=== PATIENT | female | born 1980 | race Caucasian/White ===

== ENCOUNTER 2017-01-29 14:13 | Emergency (ER) | payer OTHER ==
[2017-01-29 14:40] VITALS: BP 134/84
--- NOTE | 2017-01-29 14:59 | UC ---
Throat Pain/Nasal Jevon HPI - HPI Summary HPI Summary: [address] AND RIGHT EAR PAIN. NO HEARING LOSS OR DISCHARGE. NO FEVER. VERY MILD COUGH. NOT CONGESTED. OTC ZEYNEP HELPING. RAN OUT OF SINGULAIR. - History of Current Complaint Chief Complaint: UCGeneralIllness Stated Complaint: SORE THROAT/EAR COMPLAINT Time Seen by Provider: 01/29/17 14:45 Hx Obtained From: Patient Hx Last Menstrual Period: 01/08/17 Onset/Duration: Gradual Onset, Lasting Days, Still Present Severity: Moderate Pain Intensity: 6 Pain Scale Used: 0-10 Numeric Cough: Nonproductive Associated Signs & Symptoms: Positive: Negative Related History: Seasonal Allergies - Allergies/Home Medications Allergies/Adverse Reactions: Allergies Allergy/AdvReac Type Severity Reaction Status Date / Time Gluten Meal Allergy See Comment Verified 01/29/17 14:40 Morphine Allergy Rash Verified 01/29/17 14:40 Home Medications: Home Medications Cetirizine* [ZyrTEC 10 MG TAB*] 1 tab PO DAILY 01/29/17 [History Confirmed 01/29] Cholecalciferol [Vitamin D] 1 tab PO DAILY 01/29/17 [History Confirmed 01/29/17] Ergocalciferol [Vitamin D2] 50,000 units PO WEEKLY 01/29/17 [History Confirmed 01/29/17] Fexofenadine HCl [Allergy 24-Hr] 1 tab PO DAILY PRN 01/29/17 [History Confirmed 01/29/17] Lactobacillus [Probiotic] 1 tab PO DAILY 01/29/17 [History Confirmed 01/29/17] Lisinopril [Zestril 10 MG-] 1 tab PO DAILY 01/29/17 [History Confirmed 01/29/17] Magnesium 2 tab PO DAILY 01/29/17 [History Confirmed 01/29/17] Multiple Vitamins W/ Minerals [Multivitamin Adults] 1 tab PO DAILY 01/29/17 [ History Confirmed 01/29/17] Triamcinolone NASAL SPRAY* [Nasacort Aq Nasal Cotter*] 1 spray NASAL DAILY [History Confirmed 01/29/17] Triamterene/HCTZ 37.5-25 MG* [Dyazide CAP*] 2 tab PO DAILY 01/29/17 [History Confirmed 01/29/17] PMH/Surg Hx/FS Hx/Imm Hx - Additional Past Medical History Additional PMH: SEASONAL ALLERGIES Cardiovascular History: Hypertension Respiratory History: Asthma GI/ History: Gastroesophageal Reflux Other GI/ History: IBS - Surgical History Surgical History: Yes Surgery Procedure, Year, and Place: RT HIP ARTHROSCOPY/T&A/LEFT HIP ARTHROSCOPY - Family History Known Family History: Positive: Hypertension, Diabetes - Social History Alcohol Use: Rare Substance Use Type: None Smoking Status (MU): Never Smoked Tobacco Household Exposure Type: Cigarettes Review of Systems Constitutional: Negative ENT: Sore Throat, Ear Ache Respiratory: Cough Cardiovascular: Negative Gastrointestinal: Negative All Other Systems Reviewed And Are Negative: Yes Physical Exam Triage Information Reviewed: Yes Appearance: Well-Appearing, No Pain Distress, Well-Nourished Vital Signs: Initial Vital Signs Temp 98.4 F 01/29/17 14:34 Pulse 103 01/29/17 14:34 Resp 18 01/29/17 14:34 BP 134/84 01/29/17 14:34 Pulse Ox 98 01/29/17 14:34 Vital Signs Reviewed: Yes Eyes: Positive: Conjunctiva Clear ENT: Positive: Hearing grossly normal, Pharynx normal, TMs normal Neck: Positive: Supple, Nontender, No Lymphadenopathy Respiratory Exam: Normal Cardiovascular Exam: Normal Abdomen Description: Positive: Soft Musculoskeletal: Positive: No Edema Neurological: Positive: Alert Psychological: Positive: Age Appropriate Behavior Skin: Negative: rashes Throat Pain/Nasal Course/Dx - Differential Dx/Diagnosis Provider Diagnoses: ACUTE PHARYNGITIS Discharge - Discharge Plan Condition: Stable Disposition: HOME Prescriptions: Montelukast Sodium TAB* [Singulair TAB*] 10 mg PO DAILY #30 tab Patient Education Materials: Pharyngitis (ED) Referrals: Lindsey Sanchez MD [Primary Care Provider] - If Needed Additional Instructions: YOUR SYMPTOMS MAY BE DUE TO ALLERGIES OR A VIRUS. NO SIGN OF BACTERIAL INFECTION SO ANTIBIOTICS NOT INDICATED AT PRESENT. SINGULAIR REFILLED TODAY. CONTINUE OTC ANTIHISTAMINE DAILY. SEEK FOLLOW-UP IF NOT IMPROVING EXPECTED.
== END 2017-01-29 15:10 | disposition home or self-care (01) ==
LOC: UCEAST 14:13
DX: J02.9 Acute pharyngitis, unspecified (principal); I10 Essential (primary) hypertension; J45.909 Unspecified asthma, uncomplicated; K21.9 Gastro-esophageal reflux disease without esophagitis; K58.9 Irritable bowel syndrome, unspecified
CPT/HCPCS: 99212; G0463

== ENCOUNTER 2017-02-19 21:25 | Emergency (ER) | payer OTHER ==
[2017-02-19 21:32] VITALS: BP 126/79
[2017-02-19] MEDS ORDERED: Cephalexin CAP* 500 MG PO ONE (22:00)
--- NOTE | 2017-02-19 22:08 | UC ---
Skin Complaint HPI - HPI Summary HPI Summary: BUG BITE ON RIGHT FOREARM FOUR DAYS AGO , HAD ITCHY BLISTER APPEAR, POPPED BLISTER REDNESS AROUND AREA SPREADING. NO TICK BITES NO FEVER. - History of Current Complaint Chief Complaint: UCSkin Time Seen by Provider: 02/19/17 21:44 Stated Complaint: BUG BITE Hx Obtained From: Patient Hx Last Menstrual Period: 01/31/17 Onset/Duration: Gradual Onset, Lasting Days, Still Present Skin Exposure Onset/Duration: Days Ago Onset Severity: Mild Current Severity: Mild Location: Discrete Character: Pruritus, Redness, Painful Aggravating: Touch Associated Signs & Symptoms: Positive: Rash, Drainage - RESOLVED, Tenderness, Red Streaks. Negative: Fever, Chills, Syncope, Bruising, Joint Swelling Related History: Insect Bite/Sting, Possible Reaction to: Insect - Allergy/Home Medications Allergies/Adverse Reactions: Allergies Allergy/AdvReac Type Severity Reaction Status Date / Time Gluten Meal Allergy See Comment Verified 02/19/17 21:32 Morphine Allergy Rash Verified 02/19/17 21:32 Home Medications: Home Medications Cranberry (Vaccinium Macrocarp [Cranberry] 1 tab PO DAILY 02/19/17 [History Confirmed 02/19/17] Terbinafine HCl 1 tab PO DAILY 02/19/17 [History Confirmed 02/19/17] Review of Systems Constitutional: Negative Skin: Rash Eyes: Negative ENT: Negative Respiratory: Negative Cardiovascular: Negative Gastrointestinal: Negative Genitourinary: Negative Motor: Negative Neurovascular: Negative Musculoskeletal: Negative Neurological: Negative Psychological: Negative All Other Systems Reviewed And Are Negative: Yes PMH/Surg Hx/FS Hx/Imm Hx Previously Healthy: Yes - Surgical History Surgical History: Yes Surgery Procedure, Year, and Place: RT HIP ARTHROSCOPY/T&A/LEFT HIP ARTHROSCOPY - Family History Known Family History: Positive: Hypertension, Diabetes - Social History Occupation: Employed Full-time Lives: With Family Alcohol Use: Rare Substance Use Type: None Smoking Status (MU): Never Smoked Tobacco Household Exposure Type: Cigarettes Physical Exam Triage Information Reviewed: Yes Appearance: Well-Appearing, No Pain Distress, Well-Nourished Vital Signs: Initial Vital Signs Temp 98.2 F 02/19/17 21:27 Pulse 81 02/19/17 21:27 Resp 16 02/19/17 21:27 BP 126/79 02/19/17 21:27 Pulse Ox 100 02/19/17 21:27 Vital Signs Reviewed: Yes Eye Exam: Normal ENT Exam: Normal Dental Exam: Normal Neck exam: Normal Respiratory Exam: Normal Respiratory: Positive: Chest non-tender, Lungs clear, Normal breath sounds, No respiratory distress, No accessory muscle use Cardiovascular Exam: Normal Cardiovascular: Positive: RRR, No Murmur, Pulses Normal Abdominal Exam: Normal Musculoskeletal Exam: Normal Musculoskeletal: Positive: Strength Intact, ROM Intact Neurological Exam: Normal Psychological Exam: Normal Skin: Positive: rashes Course/Dx - Differential Diagnoses - Skin Complaint Differential Diagnoses: Allergic Reaction, Cellulitis, Eczema, Impetigo, Local Allergic Reaction, MRSA, Daugherty-Per Syndrome, Systemic Illness, Tick Born Illness, Tinea, Urticaria, Varicella Zoster, Viral Exanthem - Diagnoses Provider Diagnoses: INSECT BITE RIGHT FOREARM; CELLULITIS RIGHT FOREARM Discharge - Discharge Plan Condition: Stable Disposition: HOME Prescriptions: Cephalexin CAP* [Keflex CAP*] 500 mg PO TID #30 cap Patient Education Materials: Cellulitis (ED), Insect Bite or Sting (ED) Referrals: Lindsey Sanchez MD [Primary Care Provider] - Images Front/Back of Body, Lg (Bollinger): 1 - 2CM X 2CM MUCULAR ERRTHEMATOUS AREA WARA, WITH PLAQUED AREA REPRESENTING WHERE PREVIOUS BLISTER HAD POPPED.
== END 2017-02-19 22:09 | disposition home or self-care (01) ==
LOC: UCEAST 21:25
DX: S50.861A Insect bite (nonvenomous) of right forearm, initial encounter (principal); L03.113 Cellulitis of right upper limb; W57.XXXA Bitten or stung by nonvenomous insect and other nonvenomous arthropods, initial encounter; Y93.9 Activity, unspecified; Y92.9 Unspecified place or not applicable; Y99.9 Unspecified external cause status
CPT/HCPCS: 99212; A9270-GY; G0463

== ENCOUNTER 2017-04-09 17:36 | Emergency (ER) | payer OTHER ==
[2017-04-09 17:49] VITALS: BP 128/86
[2017-04-09] MEDS ORDERED: Albuterol/Ipratropium NEB.SOL* Albuterol 2.5 MG/Ipratropium 0.5 MG 3 ML INH ONE (18:07)
[2017-04-09] MEDS ORDERED: predniSONE TAB* 20 MG PO ONE (18:50)
[2017-04-09] MEDS ORDERED: Azithromycin TAB* 250 MG PO ONE (18:51)
[2017-04-09] MEDS ORDERED: Albuterol HFA INHALER* 8 gm MDI INH SCH (19:00)
[2017-04-09] MEDS ORDERED: Albuterol HFA INHALER* 8 gm MDI INH ONE (19:12)
--- NOTE | 2017-04-09 19:16 | UC ---
Throat Pain/Nasal Jevon HPI - HPI Summary HPI Summary: THREE DAYS OF PRODUCTIVE COUGH, WHEEZING, CONGESTION, THROAT PAIN WITH SWALLOWING. HISTORY OF ASTHMA. HAS FELT FEVERISH. - History of Current Complaint Chief Complaint: UCRespiratory Stated Complaint: ASTHMA,CHEST CONGESTION,COUGH Time Seen by Provider: 04/09/17 17:59 Hx Obtained From: Patient Hx Last Menstrual Period: 03/23/17 Onset/Duration: Gradual Onset, Lasting Days, Still Present Severity: Moderate Cough: Productive Associated Signs & Symptoms: Positive: Wheezing, Hoarseness, Sinus Discomfort, Nasal Discharge, Fever - Epiglottits Risk Factors Epiglottis Risk Factors: Negative - Allergies/Home Medications Allergies/Adverse Reactions: Allergies Allergy/AdvReac Type Severity Reaction Status Date / Time Gluten Meal Allergy See Comment Verified 02/19/17 21:32 Morphine Allergy Rash Verified 02/19/17 21:32 Home Medications: Home Medications Ranitidine HCl (Nf) [Zantac] 1 mg 04/09/17 [History] PMH/Surg Hx/FS Hx/Imm Hx Previously Healthy: Yes - Surgical History Surgical History: Yes Surgery Procedure, Year, and Place: RT HIP ARTHROSCOPY/T&A/LEFT HIP ARTHROSCOPY - Family History Known Family History: Positive: Hypertension, Diabetes, Respiratory Disease - Social History Occupation: Employed Part-time Lives: With Family Alcohol Use: Rare Substance Use Type: None Smoking Status (MU): Never Smoked Tobacco Household Exposure Type: Cigarettes Review of Systems Constitutional: Fever, Chills Skin: Negative Eyes: Negative ENT: Sore Throat, Nasal Discharge, Sinus Congestion, Sinus Pain/Tenderness Respiratory: Cough Cardiovascular: Negative Gastrointestinal: Negative Genitourinary: Negative Motor: Negative Neurovascular: Negative Musculoskeletal: Negative Neurological: Negative Psychological: Negative All Other Systems Reviewed And Are Negative: Yes Physical Exam Triage Information Reviewed: Yes Appearance: No Pain Distress, Well-Nourished, Ill-Appearing Vital Signs: Initial Vital Signs Temp 98.9 F 04/09/17 17:46 Pulse 118 04/09/17 17:46 Resp 18 04/09/17 17:46 BP 128/86 04/09/17 17:46 Pulse Ox 98 04/09/17 17:46 Eye Exam: Normal ENT: Positive: Hearing grossly normal, Nasal congestion, TM bulging, TM dull Dental Exam: Normal Neck exam: Normal Neck: Positive: Supple, Nontender, No Lymphadenopathy Respiratory Exam: Other - COUGH Respiratory: Positive: Chest non-tender, No respiratory distress, No accessory muscle use, Wheezing Cardiovascular Exam: Normal Cardiovascular: Positive: RRR, No Murmur, Pulses Normal Abdominal Exam: Normal Abdomen Description: Positive: Nontender, No Organomegaly Musculoskeletal Exam: Normal Musculoskeletal: Positive: Strength Intact, ROM Intact Neurological Exam: Normal Psychological Exam: Normal Psychological: Positive: Normal Response To Family, Age Appropriate Behavior Skin Exam: Normal Throat Pain/Nasal Course/Dx - Differential Dx/Diagnosis Differential Diagnosis/HQI/PQRI: Pharyngitis, Sinusitis, Tonsillitis, URI Provider Diagnoses: SINUSITIS; BRONCHITIS WITH BRONCHOSPASM; HISTORY OF ASTHMA Discharge - Discharge Plan Condition: Stable Disposition: HOME Prescriptions: Azithromycin TAB* [Zithromax TAB (Z-GABINO) 250 mg #6 tabs] 250 mg PO DAILY #4 tab predniSONE TAB* [Deltasone TAB*] 60 mg PO DAILY #6 tab Patient Education Materials: Sinusitis (ED), Acute Bronchitis (ED), Bronchospasm (ED) Referrals: Lindsey Sanchez MD [Primary Care Provider] -
== END 2017-04-09 19:20 | disposition home or self-care (01) ==
LOC: UCEAST 17:36
DX: J32.9 Chronic sinusitis, unspecified (principal); J20.9 Acute bronchitis, unspecified; Z87.09 Personal history of other diseases of the respiratory system
CPT/HCPCS: 99213; A9270-GY; G0463; J7512

== ENCOUNTER 2017-11-04 07:53 | Emergency (ER) | payer OTHER ==
[2017-11-04 08:20] VITALS: BP 131/73
--- NOTE | 2017-11-04 08:30 | UC ---
Skin Complaint HPI - HPI Summary HPI Summary: 3 small areas of folliculitis on left arm that she first noticed last week--- seen pcp---they are now healed. Patient has a small area on her left lower calf that is about 15 mm in diameter with one small wound in the center appears to be a bug bite or a irritated hair follicle. There is no drainage patient reports it is itchy. Patient is concerned as she has an uncle and the intensive care unit and was advised not to visit if she had no infection - History of Current Complaint Chief Complaint: UCSkin Time Seen by Provider: 11/04/17 08:23 Stated Complaint: SKIN COMPLAINT Hx Obtained From: Patient Hx Last Menstrual Period: 11/04/2017 ?: No Onset/Duration: Sudden Onset Timing: Constant Current Severity: None Pain Intensity: 0 Pain Scale Used: 0-10 Numeric Location: Discrete Character: Redness Aggravating Factor(s): Nothing Alleviating Factor(s): Nothing Associated Signs & Symptoms: Positive: Negative Related History: Insect Bite/Sting - ? - Allergy/Home Medications Allergies/Adverse Reactions: Allergies Allergy/AdvReac Type Severity Reaction Status Date / Time gluten Allergy See Comment Verified 11/04/17 07:58 morphine Allergy Rash Verified 11/04/17 07:58 Home Medications: Home Medications Calcium/Soy/Cohosh/Melatonin [Estroven Nighttime 2 mg] 1 tab PO 11/04/17 [ History] Peppermint Oil [Ibgard] 90 mg PO DAILY 11/04/17 [History Confirmed 11/04/17] Review of Systems Constitutional: Negative Skin: Other - resolving bug bite /folliculitis on left forearm 1 area of erythema that is itchy on her left lower leg Eyes: Negative ENT: Negative Respiratory: Negative Cardiovascular: Negative Gastrointestinal: Negative Genitourinary: Negative Motor: Negative Neurovascular: Negative Musculoskeletal: Negative Neurological: Negative Psychological: Negative Is Patient Immunocompromised?: No All Other Systems Reviewed And Are Negative: Yes PMH/Surg Hx/FS Hx/Imm Hx Previously Healthy: No Cardiovascular History: Hypertension GI/ History: Gastroesophageal Reflux - Surgical History Surgical History: Yes Surgery Procedure, Year, and Place: RT HIP ARTHROSCOPY/T&A/LEFT HIP ARTHROSCOPY , rt hip pinning. Tonsillectomy 1989 - Family History Known Family History: Positive: Hypertension, Diabetes, Respiratory Disease - Social History Occupation: Employed Full-time Lives: With Family Alcohol Use: None Substance Use Type: None Smoking Status (MU): Never Smoked Tobacco Household Exposure Type: Cigarettes Physical Exam Triage Information Reviewed: Yes Appearance: Well-Appearing, No Pain Distress, Well-Nourished Vital Signs: Initial Vital Signs Temp 98.5 F 11/04/17 08:03 Pulse 86 11/04/17 08:03 Resp 18 11/04/17 08:03 BP 131/73 11/04/17 08:03 Pulse Ox 98 11/04/17 08:03 Vital Signs Reviewed: Yes Eye Exam: Normal Eyes: Positive: Conjunctiva Clear ENT Exam: Normal ENT: Positive: Normal ENT inspection, Hearing grossly normal. Negative: Nasal congestion, Trismus, Muffled voice, Hoarse voice Dental Exam: Normal Neck exam: Normal Neck: Positive: Supple, Nontender, No Lymphadenopathy Respiratory Exam: Normal Respiratory: Positive: Chest non-tender, No respiratory distress, No accessory muscle use Cardiovascular Exam: Normal Cardiovascular: Positive: RRR, Pulses Normal, Brisk Capillary Refill Musculoskeletal Exam: Normal Musculoskeletal: Positive: Strength Intact, ROM Intact, No Edema Neurological Exam: Normal Neurological: Positive: Alert, Muscle Tone Normal Psychological Exam: Normal Skin Exam: Other Skin: Positive: rashes - Follicular rash as described Course/Dx - Course Course Of Treatment: Soap and water wash may apply triple antibiotic ointment follow with PCP or return should symptoms worsen - Diagnoses Provider Diagnoses: resolving follicular rash Discharge - Sign-Out/Discharge Documenting (check all that apply): Discharge - Discharge Plan Condition: Stable Disposition: HOME Patient Education Materials: Folliculitis (ED) Referrals: Lindsey Sanchez MD [Primary Care Provider] - If Needed () - Billing Disposition and Condition Condition: STABLE Disposition: HOME
== END 2017-11-04 08:34 | disposition home or self-care (01) ==
LOC: UCEAST 07:53
DX: L73.9 Follicular disorder, unspecified (principal); I10 Essential (primary) hypertension; K21.9 Gastro-esophageal reflux disease without esophagitis; Z88.5 Allergy status to narcotic agent
CPT/HCPCS: 99212; G0463

== ENCOUNTER 2018-03-01 12:47 | Day surgery (SDC) | payer OTHER ==
[~2018-03-01 12:47] MED LIST: Buffered Lidocaine 0.9% SYRIN* 5 ML/SYR SYRINGE INTRADERM ONE
[2018-03-01] MEDS ORDERED: ceFAZolin 2 GM PREMIX (*) 2 GM/50 ML BAG IVPB ONE (12:48)
[2018-03-01] MEDS ORDERED: Propofol* 10 MG/ML 20 ML BTL IV PUSH ONE (14:14)
[2018-03-01] MEDS ORDERED: Lidocaine 2% PF * 5 ML VIAL ONE (14:14)
[2018-03-01] MEDS ORDERED: Lidocaine 1%* 5 ML VIAL ONE (14:50)
[2018-03-01] MEDS ORDERED: Midazolam* 1 MG/ML 2 ML VIAL (2 MG) ONE ×3 (14:52→15:18)
[2018-03-01] MEDS ORDERED: Bupivacaine 0.25% SDV PF* 10 ML VIAL INJ ONE (15:15)
[2018-03-01] MEDS ORDERED: KETAMINE HCL* 50 MG/ML 10 ML VIAL ONE (15:19)
[2018-03-01] MEDS ORDERED: Naloxone* 0.4 MG/ML 1 ML VIAL IV PRN (15:38)
[2018-03-01] MEDS ORDERED: HYDROmorphone INJ* 0.5 MG/0.5 ML SYRINGE IV PRN (15:38)
[2018-03-01] MEDS ORDERED: Acetaminophen TAB* 325 MG PO PRN (15:38)
[2018-03-01] MEDS ORDERED: Ondansetron ODT TAB* 4 MG PO PRN (15:38)
[2018-03-01] MEDS ORDERED: Acetaminophen TAB* 325 MG ONE (16:11)
[2018-03-01 16:18] VITALS: BP 127/89
--- NOTE | 2018-03-01 16:46 | OP ---
Operative Report - Blank - Operative Report Date of Operation: 03/01/18 Note: PATIENT: Sara Mooney DATE OF : 1980 DATE OF SURGERY: 03/01/2018 SURGEON: Fernandez Hough MD KEYBOARD ACTION ASSEMBLER: DAVID Miller, whos assistance was necessary for positioning, retraction, help with instrumentation, and closure. ANESTHESIOLOGIST: Dr. Lara PREOPERATIVE DIAGNOSIS: Left great toe ingrown toe nail POSTOPERATIVE DIAGNOSIS: Left great toe ingrown toe nail OPERATION: Left great toe partial toe nail excision and excision of nail fold ANESTHESIA: MAC IMPLANTS: none TOURNIQUET TIME: none SPECIMENS: none ESTIMATED BLOOD LOSS: minimal COMPLICATIONS: none STATUS: Stable from the operating room to the recovery room and then home INDICATIONS FOR PROCEDURE: Sara has had a persistent left ingrown toe nail. Both operative and non- operative treatment alternatives were reviewed. Further, the nature and risks of surgery were reviewed in careful detail, in the office as well as the pre- operative holding area. Our discussions regarding the risks of surgery included , but were not limited to, infection, wound problems, nerve injury, RSD, persistent symptoms, blood clot, failure of the surgery, and even the remote chance of catastrophic complication, including loss of limb. DESCRIPTION OF PROCEDURE: The patient was seen in the preoperative holding unit and informed written consent was obtained. The appropriate extremity was marked. The patient was then brought to the operating room and carefully positioned on the operating room table. Anesthesia was induced. All bony prominences were padded with great care. A chlorhexidine based pre-scrub was performed followed by a chloraprep prep and drape in standard sterile fashion. A surgical safety pause was then conducted in which we confirmed the appropriate patient, extremity, planned procedure, availability of equipment, indication and administration of prophylactic antibiotics, and DVT prophylaxis in the form of a compression boot on the non-surgical extremity. I began by using a freer elevator to elevate the nail off of the nailbed at the medial and lateral sides. I then used bone cutters to longitudinally cut the nail on the medial and lateral sides. These slivers of nail were then detached from the toe. I then made an ellipsoid incision at the lateral nail fold and excised out the ellipse of skin. I then used 3-0 nylon to close the ellipsed incision, thus reducing the bulk of the nail fold. I then used electrocautery at the proximal nail folds where the slivers of nail had been removed. A sterile dressing was then applied. The patient was then awakened from anesthesia and transferred to the recovery room in stable condition. There were no complications. All needle and sponge counts were correct at the end of the case. ATTESTATION: I attest I was present and scrubbed and performed the critical portions of the procedure myself. POSTOPERATIVE PLAN: She will remain heel weight-bearing for 2 weeks postoperatively
== END 2018-03-01 16:35 | disposition home or self-care (01) ==
LOC: OR 12:47
PROVIDERS: ATTEND Orthopaedic Surgery
DX: L60.0 Ingrowing nail (principal); I10 Essential (primary) hypertension; J45.909 Unspecified asthma, uncomplicated; E78.00 Pure hypercholesterolemia, unspecified; K21.9 Gastro-esophageal reflux disease without esophagitis; E03.9 Hypothyroidism, unspecified; E11.9 Type 2 diabetes mellitus without complications; Z79.84 Long term (current) use of oral hypoglycemic drugs; K58.9 Irritable bowel syndrome, unspecified
CPT/HCPCS: 81025; A9270-GY; J0690; J2250; J2704; J3490